=== PATIENT | male | born 1965 | race Caucasian/White ===

== ENCOUNTER 2024-07-31 03:26 | Inpatient (IN) | payer OTHER, SELFPAY ==
[2024-07-31] MEDS ORDERED: METHYLPREDNISOLONE 125 MG INJ ONE (03:54)
[2024-07-31] MEDS ORDERED: IPRATROPIUM BROM 0.5MG/2.5ML ONE (03:54)
[2024-07-31] MEDS ORDERED: Levofloxacin500mg IV 500 MG/100 ML BAG IV ONE (03:55)
[2024-07-31] MEDS ORDERED: FAMOTIDINE 20 MG/2 ML VIAL IV ONE (03:55)
[2024-07-31] MEDS ORDERED: LEVALBUTEROL 1.25 MG/3 ML NEB ONE (03:55)
[2024-07-31] MEDS ORDERED: NA CHLORIDE 0.9% 1,000 ML ONE (03:56)
--- NOTE | 2024-07-31 04:03 | EDPHYS ---
Physician Documentation [facility] Name: Kostas De Jesus Age: 59 yrs Sex: Male : 1965 Arrival Date: 07/31/2024 Time: 03:26 Bed 8 Private MD: ED Physician Dwight Brooks HPI: 07/31 03:43 This 59 yrs old Male presents to ER via EMS with complaints of Breathing denise Difficulty. 03:43 The patient has shortness of breath at rest, with light activity. Onset: The denise symptoms/episode began/occurred today, yesterday. Duration: The symptoms are continuous, and are steadily getting worse. The patient's shortness of breath is aggravated by coughing. Associated signs and symptoms: The patient has no apparent associated signs or symptoms. Severity of symptoms: At their worst the symptoms were moderate in the emergency department the symptoms are unchanged. The patient has experienced similar episodes in the past, multiple times. Historical: - Allergies: 03:36 No Known Allergies; bm8 - Home Meds: 03:36 albuterol sulfate 2.5 mg /3 mL (0.083 %) Nebulizer Solution for Nebulization [Active]; bm8 - PMHx: 03:36 Chronic obstructive lung disease; Asthma; Chronic bronchitis; bm8 - PSHx: 03:36 None; bm8 - Immunization history:: Adult Immunizations unknown. - Infectious Disease History:: Denies. - Social history:: Smoking status: Patient reports the use of cigarette tobacco products, denies chronic smoking, but will smoke occasionally. - Family history:: not pertinent. ROS: 03:43 Constitutional: Negative for fever, chills, and weight loss, Eyes: Negative for injury, denise pain, redness, and discharge, ENT: Negative for injury, pain, and discharge, Neck: Negative for injury, pain, and swelling, Cardiovascular: Negative for chest pain, palpitations, and edema, Abdomen/GI: Negative for abdominal pain, nausea, vomiting, diarrhea, and constipation, Back: Negative for injury and pain, : Negative for injury, bleeding, discharge, and swelling, MS/Extremity: Negative for injury and deformity, Skin: Negative for injury, rash, and discoloration, Neuro: Negative for headache, weakness, numbness, tingling, and seizure, Psych: Negative for depression, anxiety, suicide ideation, homicidal ideation, and hallucinations, Allergy/Immunology: Negative for hives, rash, and allergies, Endocrine: Negative for neck swelling, polydipsia, polyuria, polyphagia, and marked weight changes, Hematologic/Lymphatic: Negative for swollen nodes, abnormal bleeding, and unusual bruising, 03:43 Respiratory: Positive for cough, shortness of breath, wheezing, inspiratory, expiratory, Exam: 03:43 Constitutional: This is a well developed, well nourished patient who is awake, alert, denise and in no acute distress. Head/Face: Normocephalic, atraumatic. Eyes: Pupils equal round and reactive to light, extra-ocular motions intact. Lids and lashes normal. Conjunctiva and sclera are non-icteric and not injected. Cornea within normal limits. Periorbital areas with no swelling, redness, or edema. ENT: Nares patent. No nasal discharge, no septal abnormalities noted. Tympanic membranes are normal and external auditory canals are clear. Oropharynx with no redness, swelling, or masses, exudates, or evidence of obstruction, uvula midline. Mucous membranes moist. Neck: Trachea midline, no thyromegaly or masses palpated, and no cervical lymphadenopathy. Supple, full range of motion without nuchal rigidity, or vertebral point tenderness. No Meningismus. Chest/axilla: Normal chest wall appearance and motion. Nontender with no deformity. No lesions are appreciated. Cardiovascular: Regular rate and rhythm with a normal S1 and S2. No gallops, murmurs, or rubs. Normal PMI, no JVD. No pulse deficits. Abdomen/GI: Soft, non-tender, with normal bowel sounds. No distension or tympany. No guarding or rebound. No evidence of tenderness throughout. Back: No spinal tenderness. No costovertebral tenderness. Full range of motion. Male : Normal genitalia with no discharge or lesions. Skin: Warm, dry with normal turgor. Normal color with no rashes, no lesions, and no evidence of cellulitis. MS/ Extremity: Pulses equal, no cyanosis. Neurovascular intact. Full, normal range of motion. Neuro: Awake and alert, GCS 15, oriented to person, place, time, and situation. Cranial nerves II-XII grossly intact. Motor strength 5/5 in all extremities. Sensory grossly intact. Cerebellar exam normal. Normal gait. Psych: Awake, alert, with orientation to person, place and time. Behavior, mood, and affect are within normal limits. 03:43 Respiratory: mild respiratory distress is noted, moderate respiratory distress is noted, Respirations: labored breathing, that is mild, that is moderate, Breath sounds: bronchial sounds, that are moderate, are scattered, decreased breath sounds, that are moderate, are scattered, rhonchi, that are mild, are scattered, stridor, is not appreciated, + upper airway congestion. wheezing: inspiratory expiratory is heard diffusely, Vital Signs: 03:34 BP 121 / 74; Pulse 98; Resp 18; Temp 98; Pulse Ox 98% on 3 lpm NC; Weight 37.65 kg; bm8 Height 5 ft. 4 in. ; Pain 0/10; 04:06 BP 119 / 75; Pulse 86; Resp 25; Temp 98; Pulse Ox 98% on 10 lpm Nebulizer Mask; Pain bm8 0/10; 05:16 BP 105 / 75; Pulse 91; Resp 23; Temp 98; Pulse Ox 95% on R/A; Pain 0/10; bm8 03:34 Body Mass Index 14.25 (37.65 kg, 162.56 cm) bm8 03:34 Pain Scale: Adult bm8 04:06 Pain Scale: Adult bm8 05:16 Pain Scale: Adult bm8 Manjinder Coma Score: 04:06 Eye Response: spontaneous(4). Motor Response: obeys commands(6). Verbal Response: bm8 oriented(5). Total: 15. 05:16 Eye Response: spontaneous(4). Motor Response: obeys commands(6). Verbal Response: bm8 oriented(5). Total: 15. MDM: 03:34 Patient medically screened. denise 03:45 Differential diagnosis: Anxiety Reaction asthma, Bronchitis CHF exacerbation, Chronic denise Obstructive Pulmonary Disease Myocardial Infarction pneumonia, Pneumothorax Psychogenic pulmonary edema, Pulmonary Embolism reactive airway disease, Sepsis Unstable Angina. Antibiotic administration: Not indicated, Immunization status: Influenza vaccine: within last 5 years. Data reviewed: vital signs, nurses notes, lab test result(s), EKG, radiologic studies, plain films. Consideration of Admission/Observation Escalation of care including admission/observation considered. I considered the following discharge prescriptions or medication management in the emergency department Medications were administered in the Emergency Department. See MAR. Test considered but Not performed: CT: ct chest. 07/31 03:36 Order name: Basic Metabolic Panel; Complete Time: 04:35 [facility] 07/31 03:36 Order name: CBC with Diff; Complete Time: 04:11 [facility] 07/31 03:36 Order name: LFT's; Complete Time: 04:35 [facility] 07/31 03:36 Order name: Magnesium; Complete Time: 04:35 07/31 03:36 Order name: NT PRO-BNP; Complete Time: 04:35 [facility] 07/31 03:36 Order name: PT-INR [facility] 07/31 03:36 Order name: Troponin HS; Complete Time: 04:35 [facility] 07/31 03:36 Order name: Blood Culture Adult (2) [facility] 07/31 03:40 Order name: Lactate w/ 2H reflex if indic.; Complete Time: 04:35 [facility] 07/31 04:34 Order name: Urinalysis w/ reflexes [facility] 07/31 04:34 Order name: Basic Metabolic Panel [facility] 07/31 04:34 Order name: Basic Metabolic Panel [facility] 07/31 04:34 Order name: CBC with Automated Diff [facility] 07/31 04:34 Order name: CBC with Automated Diff [facility] 07/31 04:34 Order name: NT PRO-BNP [facility] 07/31 04:34 Order name: NT PRO-BNP [facility] 07/31 04:34 Order name: Troponin High Sensitivity [facility] 07/31 04:34 Order name: Sputum Culture [facility] 07/31 04:36 Order name: ABG [facility] 07/31 05:13 Order name: D-Dimer [facility] 07/31 03:36 Order name: XRAY Chest (1 view) [facility] 07/31 03:36 Order name: EKG; Complete Time: 03:36 denise 07/31 03:36 Order name: Cardiac monitoring; Complete Time: 03:39 07/31 03:36 Order name: EKG - Nurse/Tech; Complete Time: 03:39 07/31 03:36 Order name: IV Saline Lock; Complete Time: 03:39 [facility] 07/31 03:36 Order name: Labs collected and sent; Complete Time: 03:39 denise 07/31 03:36 Order name: O2 Per Protocol; Complete Time: 03:40 07/31 03:36 Order name: O2 Sat Monitoring; Complete Time: 03:40 [facility] Administered Medications: 04:05 Drug: NS 0.9% IV 1000 ml IV at 125 ml/hr continuous Route: IV; Rate: 125 ml/hr; Site: bm8 right forearm; 04:42 Follow up: Response: No adverse reaction; IV Status: Infusion continued upon admission bm8 04:05 Drug: Famotidine IVP 20 mg IVP once; dilute with 10 mL 0.9% NaCl; give over 2 minutes bm8 Route: IVP; Site: right forearm; 04:43 Follow up: Response: No adverse reaction bm8 04:05 Drug: Levalbuterol Inhalation 3.75 mg Inhalation once Route: Inhalation; bm8 04:43 Follow up: Response: No adverse reaction bm8 04:05 Drug: Ipratropium Inhalation Aerosol 0.5 mg Inhalation once Route: Inhalation; bm8 04:43 Follow up: Response: No adverse reaction bm8 04:06 Drug: MethylPrednisoLONE IVP 125 mg IVP once Route: IVP; Site: right forearm; bm8 04:42 Follow up: Response: No adverse reaction bm8 04:06 Drug: levofloxacin IVPB 500 mg 100 ml IVPB once over 60 mins Volume: 100 ml; Route: bm8 IVPB; Infused Over: 60 mins; Site: right forearm; 04:43 Follow up: Response: No adverse reaction; IV Status: Infusion continued upon admission bm8 04:35 Drug: Magnesium Sulfate IVPB 2 grams IVPB once over 2 hrs Route: IVPB; Infused Over: 2 bm8 hrs; Site: left forearm; 04:44 Follow up: Response: No adverse reaction; IV Status: Infusion continued upon admission bm8 04:36 Drug: Levalbuterol Inhalation 1.25 mg Inhalation once Route: Inhalation; bm8 04:44 Follow up: Response: No adverse reaction bm8 04:36 Drug: Levalbuterol Inhalation 1.25 mg Inhalation once Route: Inhalation; bm8 04:44 Follow up: Response: No adverse reaction bm8 Disposition Summary: 07/31/24 04:03 Hospitalization Ordered Notes: Hospitalization Status: Inpatient Admission denise Provider: Prince denise Lucas Condition: Fair denise Problem: new denise Symptoms: have improved denise Bed/Room Type: Standard denise Location: Telemetry/MedSurg (Inpatient)(07/31/24 05:00) Room Assignment: 208(07/31/24 05:00) Diagnosis - Dyspnea denise - COPD/ Chronic obstructive pulmonary disease with (acute) exacerbation denise - Hypoxemia denise - Tobacco abuse counseling denise - Tobacco use denise Forms: - Medication Reconciliation Form denise - SBAR form denise - Leadership Thank You Letter denise Signatures: Dispatcher [employer] EDKrystal Headley, RN RN Dwight Galvan MD MD cha Able, Lacie RN RN lg3 Sam Rosenberg, RN RN bm8 Corrections: (The following items were deleted from the chart) 03:36 03:36 BASIC METABOLIC PANEL+C.LAB.BRZ ordered. EDMS EDMS 03:36 03:36 CBC+H.LAB.BRZ ordered. EDMS EDMS 03:36 03:36 HEPATIC FUNCTION+C.LAB.BRZ ordered. EDMS EDMS 03:36 03:36 MAGNESIUM+C.LAB.BRZ ordered. EDMS EDMS 03:36 03:36 PROBNP+C.LAB.BRZ ordered. EDMS EDMS 03:36 03:36 PROTIME (+INR)+COAG.LAB.BRZ ordered. EDMS EDMS 03:36 03:36 Troponin High Sensitivity+C.LAB.BRZ ordered. EDMS EDMS 03:36 03:36 BLOOD CULTURE*+BA.LAB.BRZ ordered. EDMS EDMS 03:41 03:41 LACTATE+C.LAB.BRZ ordered. EDMS EDMS 04:10 04:03 Telemetry/MedSurg (Inpatient) denise lg3 04:10 04:03 denise lg3 04:36 04:36 Arterial Blood Gas+RC.LAB.BRZ ordered. EDMS EDMS 05:00 04:10 [facility] ER HOLD lg3 kl 05:00 04:10 ERHOLD- lg3 kl 05:13 05:00 D-Dimer ordered. EDMS EDMS
--- NOTE | 2024-07-31 04:03 | ER ---
Nurse's Notes [facility] Name: Kostas De Jesus Age: 59 yrs Sex: Male : 1965 Arrival Date: 07/31/2024 Time: 03:26 Bed 8 Private MD: Diagnosis: Dyspnea;COPD/ Chronic obstructive pulmonary disease with (acute) exacerbation;Hypoxemia;Tobacco abuse counseling;Tobacco use Presentation: 07/31 03:34 Chief complaint: Patient states: I have been short of breath for 2 days, I dont feel bm8 like my O2 is getting into me at home. Coronavirus screen: At this time, the client does not indicate any symptoms associated with coronavirus-19. Ebola Screen: Patient negative for fever greater than or equal to 101.5 degrees Fahrenheit, and additional compatible Ebola Virus Disease symptoms Patient denies exposure to infectious person. Patient denies travel to an Ebola-affected area in the 21 days before illness onset. No symptoms or risks identified at this time. Initial Sepsis Screen: Does the patient meet any 2 criteria? No. Patient's initial sepsis screen is negative. Does the patient have a suspected source of infection? No. Patient's initial sepsis screen is negative. Risk Assessment: Do you want to hurt yourself or someone else? Patient reports no desire to harm self or others. Onset of symptoms was July 29, 2024. 03:34 Method Of Arrival: EMS: [facility] 03:34 Acuity: BRYANT 3 bm8 03:34 Care prior to arrival: Medication(s) given: Albuterol Neb x 1. bm8 Triage Assessment: 03:36 General: Appears distressed, uncomfortable, Behavior is cooperative, appropriate for bm8 age, anxious. Pain: Denies pain. EENT: No deficits noted. No signs and/or symptoms were reported regarding the EENT system. Neuro: No deficits noted. Level of Consciousness is awake, alert, obeys commands, Oriented to person, place, time, situation, Appropriate for age. Cardiovascular: Denies chest pain, Heart tones S1 S2 present Capillary refill < 3 seconds in bilateral fingers Clubbing of nail beds is present Patient's skin is warm and dry. Rhythm is sinus rhythm. Respiratory: Reports shortness of breath air hunger labored breathing Airway is patent Respiratory effort is even, labored, pursed lip, Respiratory pattern is symmetrical, hypoventilation Breath sounds with rhonchi bilaterally. Onset: The symptoms/episode began/occurred at an unknown time. the patient has severe shortness of breath. GI: No signs and/or symptoms were reported involving the gastrointestinal system. : No signs and/or symptoms were reported regarding the genitourinary system. Derm: No signs and/or symptoms reported regarding the dermatologic system. Musculoskeletal: No signs and/or symptoms reported regarding the musculoskeletal system. Historical: - Allergies: 03:36 No Known Allergies; bm8 - Home Meds: 03:36 albuterol sulfate 2.5 mg /3 mL (0.083 %) Nebulizer Solution for Nebulization [Active]; bm8 - PMHx: 03:36 Chronic obstructive lung disease; Asthma; Chronic bronchitis; bm8 - PSHx: 03:36 None; bm8 - Immunization history:: Adult Immunizations unknown. - Infectious Disease History:: Denies. - Social history:: Smoking status: Patient reports the use of cigarette tobacco products, denies chronic smoking, but will smoke occasionally. - Family history:: not pertinent. Screenin:[address] [facility] ED Fall Risk Assessment (Adult) History of falling in the last 3 months, bm8 including since admission Yes- single mechanical fall (1 pt) Confusion or Disorientation No (0 pts) Intoxicated or Sedated No (0 pts) Impaired Gait Yes (1 pt) Mobility Assist Device Used No (0 pt) Altered Elimination No (0 pt) Score/Fall Risk Level 0 - 2 = Low Risk Oriented to surroundings, Maintained a safe environment, Educated pt \T\ family on fall prevention, incl call for assistance when getting out of bed, Assessed \T\ reinforced patient's understanding of fall precautions, Hourly rounding (assess needs \T\ fall precautionary measures) done, Used ambulatory aids as needed (educated on \T\ assisted with), Used gait belt as appropriate. Abuse screen: Denies threats or abuse. Nutritional screening: No deficits noted. Tuberculosis screening: No symptoms or risk factors identified. Assessment: 04:06 General: Appears in no apparent distress. comfortable, Behavior is calm, cooperative, bm8 appropriate for age. Pain: Denies pain. Neuro: No deficits noted. Cardiovascular: Denies chest pain. Respiratory: Airway is patent Trachea midline Respiratory effort is even, unlabored, Respiratory pattern is regular, symmetrical, Breath sounds with rhonchi bilaterally. 05:16 Reassessment: Patient appears in no apparent distress at this time. No changes from bm8 previously documented assessment. Patient and/or family updated on plan of care and expected duration. Pain level reassessed. Patient denies pain at this time. Patient states feeling better. Patient states symptoms have improved. Vital Signs: 03:34 BP 121 / 74; Pulse 98; Resp 18; Temp 98; Pulse Ox 98% on 3 lpm NC; Weight 37.65 kg; bm8 Height 5 ft. 4 in. ; Pain 0/10; 04:06 BP 119 / 75; Pulse 86; Resp 25; Temp 98; Pulse Ox 98% on 10 lpm Nebulizer Mask; Pain bm8 0/10; 05:16 BP 105 / 75; Pulse 91; Resp 23; Temp 98; Pulse Ox 95% on R/A; Pain 0/10; bm8 03:34 Body Mass Index 14.25 (37.65 kg, 162.56 cm) bm8 03:34 Pain Scale: Adult bm8 04:06 Pain Scale: Adult bm8 05:16 Pain Scale: Adult bm8 Manjinder Coma Score: 04:06 Eye Response: spontaneous(4). Motor Response: obeys commands(6). Verbal Response: bm8 oriented(5). Total: 15. 05:16 Eye Response: spontaneous(4). Motor Response: obeys commands(6). Verbal Response: bm8 oriented(5). Total: 15. ED Course: 03:31 Patient arrived in ED. jj6 03:33 Sam Rosenberg, RN is Primary Nurse. bm8 03:34 Dwight Brooks MD is Attending Physician. denise 03:36 Triage completed. bm8 03:36 Arm band placed on right wrist. bm8 03:48 EKG done, by ED staff, reviewed by Dwight Brooks MD. sa1 03:56 XRAY Chest (1 view) In Process Unspecified. EDMS 04:01 Prince Lucas MD is Hospitalizing Provider. denise 04:06 Patient has correct armband on for positive identification. Call light in reach. Side bm8 rails up X 1. Client placed on continuous cardiac and pulse oximetry monitoring. NIBP monitoring applied. case monitor on. Pulse ox on. NIBP on. Door closed. Noise minimized. Visitors limited. Warm blanket given. Pillow given. Verbal reassurance given. Head of bed. 04:06 No provider procedures requiring assistance completed. Inserted saline lock: 18 gauge bm8 in right in left forearm, using aseptic technique. Blood collected. Flushed with 10 mL NS. Oxygen administered via a nebulizer mask. Response to oxygen therapy: symptoms improved. 04:44 Provided Education on: need for admission. bm8 04:44 Patient admitted, IV remains in place. bm8 Administered Medications: 04:05 Drug: NS 0.9% IV 1000 ml IV at 125 ml/hr continuous Route: IV; Rate: 125 ml/hr; Site: bm8 right forearm; 04:42 Follow up: Response: No adverse reaction; IV Status: Infusion continued upon admission bm8 04:05 Drug: Famotidine IVP 20 mg IVP once; dilute with 10 mL 0.9% NaCl; give over 2 minutes bm8 Route: IVP; Site: right forearm; 04:43 Follow up: Response: No adverse reaction bm8 04:05 Drug: Levalbuterol Inhalation 3.75 mg Inhalation once Route: Inhalation; bm8 04:43 Follow up: Response: No adverse reaction bm8 04:05 Drug: Ipratropium Inhalation Aerosol 0.5 mg Inhalation once Route: Inhalation; bm8 04:43 Follow up: Response: No adverse reaction bm8 04:06 Drug: MethylPrednisoLONE IVP 125 mg IVP once Route: IVP; Site: right forearm; bm8 04:42 Follow up: Response: No adverse reaction bm8 04:06 Drug: levofloxacin IVPB 500 mg 100 ml IVPB once over 60 mins Volume: 100 ml; Route: bm8 IVPB; Infused Over: 60 mins; Site: right forearm; 04:43 Follow up: Response: No adverse reaction; IV Status: Infusion continued upon admission bm8 04:35 Drug: Magnesium Sulfate IVPB 2 grams IVPB once over 2 hrs Route: IVPB; Infused Over: 2 bm8 hrs; Site: left forearm; 04:44 Follow up: Response: No adverse reaction; IV Status: Infusion continued upon admission bm8 04:36 Drug: Levalbuterol Inhalation 1.25 mg Inhalation once Route: Inhalation; bm8 04:44 Follow up: Response: No adverse reaction bm8 04:36 Drug: Levalbuterol Inhalation 1.25 mg Inhalation once Route: Inhalation; [facility] 04:44 Follow up: Response: No adverse reaction bm8 Medication: 04:06 VIS not applicable for this client. bm8 Outcome: 04:03 Decision to Hospitalize by Provider. denise 04:44 Admitted to ER Hold. Please see [facility] for further documentation. 8 04:44 Condition: stable 04:44 Instructed on the need for admit, Demonstrated understanding of instructions, follow-up care, medications, 05:51 Patient left the ED. 8 Signatures: Dispatcher [employer] EDDwight Storm MD MD cha Jeffries, Jennifer jj6 Sam Rosenberg, RN RN bm8 Sultan warren Mace
[2024-07-31 04:05] LABS: Absolute Eosinophils 0.2 K/uL (0-0.5); Absolute Lymphocytes (CBC) 1.3 K/uL (0.7-4.9); Absolute Monocytes 1.1 K/uL (0.1-1.3); Absolute Neutrophil 5.1 K/uL (1.8-8.0); Basophils % 0.6 % (0-1.3); Eosinophils % 2.1 % (0-4.4); Hematocrit 35.4 % (39.6-49.0); Hemoglobin 11.4 g/dL (13.6-17.9); Lymphocytes % 16.6 % (15.3-44.8); MCH 30.3 pg (27.0-35.0); MCHC 32.2 g/dL (32.0-36.0); MPV 8.9 fL (7.6-11.3); Monocytes % 13.9 % (3.3-12.3); Neutrophils % 66.8 % (41.7-73.7); Platelets 224 thou/uL (152-406); RBC Red Blood Cell Count 3.77 M/uL (4.33-5.43); Red Cell Distribution Width 13.6 % (12.1-15.2)
[2024-07-31] MEDS ORDERED: Magnesium Sulfate 2gm IVPB 2 G/50 ML BAG IV ONE (04:14)
[2024-07-31 04:21] LABS: ALT/SGPT 47 U/L (16-61); AST/SGOT 27 U/L (15-37); Albumin 3.4 g/dL (3.4-5.0); Albumin/Globulin Ratio 0.9 (1.1-1.8); Alkaline Phosphatase 62 U/L (45-117); Anion Gap 4.9 mEq/L (5.0-15.0); BUN Blood Urea Nitrogen 17 mg/dL (7-18); Bicarbonate 42 mEq/L (21-32); Bilirubin Total 0.2 mg/dL (0.2-1.0); Globulin 3.7 g/dL (2.3-3.5); Glomerular Filtration Rate 120 ml/min (=/>90); Glucose Level 110 mg/dL (74-106); Magnesium 2.1 mg/dL (1.6-2.4); NT PRO-BNP 113 pg/mL (<125); PT Prothrombin Time 10.4 SECONDS (9.4-12.5); Potassium 3.9 mEq/L (3.5-5.1); Protein, Total 7.1 g/dL (6.4-8.2); Protime INR 0.93; Sodium Level 140 mEq/L (136-145); Troponin High Sensitivity 3.1 pg/mL (<58.9)
[2024-07-31 04:23] LABS: Bilirubin Direct < 0.2 mg/dL (0-0.2)
[2024-07-31] MEDS ORDERED: ONDANSETRON 4 MG/2 ML VIAL IV PRN ×2 (04:28)
[2024-07-31] MEDS ORDERED: ALBUTEROL 2.5 MG/3 ML NEB SOL NEB PRN ×2 (04:28→07:26)
[2024-07-31] MEDS ORDERED: IPRATROPIUM BROM 0.5MG/2.5ML NEB PRN ×2 (04:28→07:27)
[2024-07-31] MEDS ORDERED: ACETAMINOPHEN 500 MG TAB PO PRN (04:28)
--- NOTE | 2024-07-31 04:57 | P.HP ---
Certification for Inpatient Patient admitted to: Inpatient With expected LOS: >2 Midnights Practitioner: I am a practitioner with admitting privileges, knowledge of patient current condition, hospital course, and medical plan of care. Services: Services provided to patient in accordance with Admission requirements found in Title 42 Section 412.3 of the Code of Federal Regulations Patient History Date of Service: 07/31/24 Reason for admission: shortness of breath History of Present Illness: This is a 59-year-old male with a known past medical history of chronic respiratory failure and COPD. He is presenting to the ER complaining of shortness of breath ongoing for the past 2 days. Patient states that he woke up 1 day without his oxygen on and has been symptomatic since. Associated symptoms include productive cough. He has no lower extremity edema or fever. His chest x-ray in the ER revealed hyperinflated lungs. During my evaluation, patient was using the nebulizer therapy. He also received IV magnesium sulfate and levofloxacin. Allergies No Known Allergie Allergy (Uncoded 11/30/17 00:18) Unknown Physical Examination - Physical Exam General: Cachectic HEENT: Atraumatic, Normocephalic Respiratory: Diminished Cardiovascular: Normal pulses, Regular rate/rhythm, Normal S1 S2 Neurological: Normal speech - Studies Laboratory Data (last 24 hrs) 07/31/24 07/31/24 07/31/24 03:30 03:30 03:30 WBC 7.70 Hgb 11.4 L Hct 35.4 L Plt Count 224 PT 10.4 INR 0.93 Sodium 140 Potassium 3.9 BUN 17 Creatinine 0.47 L Glucose 110 H Magnesium 2.1 Total Bilirubin 0.2 AST 27 ALT 47 Alkaline Phosphatase 62 Assessment and Plan - Problems (Diagnosis) (1) Acute and chronic respiratory failure Current Visit: Yes Status: Acute (2) COPD exacerbation Current Visit: Yes Status: Acute - Plan Assessment This is a 59-year-old male who is being admitted for COPD exacerbation. Acute on chronic respiratory failure COPD exacerbation Plan: Will admit inpatient BiPAP ordered, to alternate with nasal cannula Continue Solu-Medrol, IV levofloxacin and DuoNeb Will also add Dulera on board GI prophylaxis added Check D-dimer to rule out pulmonary embolism - Advance Directives Does patient have a Living Will: No Does patient have a Durable POA for Healthcare: No
[2024-07-31] MEDS ORDERED: SODIUM CHLORIDE 0.9% 10ML INJ IV PRN (04:58)
[2024-07-31 05:17] LABS: D-Dimer 0.837 FEUug/mL (0-0.500)
[2024-07-31 05:41] LABS: Arterial Blood Carboxyhemoglob 2.1 % (0-1.5); Blood Gas Oxyhemoglobin 92.5 % (94-97); Blood Gas THB 11.2 g/dl (12-18); Blood O2 Saturation 96.3 % (92-98.5)
[2024-07-31] MEDS: PANTOPRAZOLE 40 MG INJ IVP SCH (06:00)
--- NOTE | 2024-07-31 06:34 | RAD REPORT ---
EXAM DESCRIPTION: Chest Single View CLINICAL HISTORY: COPD COMPARISON: None TECHNIQUE: Single AP view of the chest. FINDINGS: Lung volumes adequate. Cardiac silhouette is normal in size. No pneumothorax. No large pleural effusion. Blunting of bilateral costophrenic angles, suggesting small effusions versus pleural scarring. No acute bony finding. IMPRESSION: 1. No focal consolidation. 2. Small bilateral pleural effusions versus pleural scarring. Electronically signed by: Albina Bond MD 07/31/2024 06:29 AM CDT Z9 Due to temporary technical issues with the PACS/[employer] reporting system, reports are being twila d by the in-house radiologist without review as a courtesy to ensure prompt reporting the interpreting radiologist is fully responsible for the content of the report. Transcribed Date/Time: 07/31/2024 6:33 AM
[2024-07-31] MEDS: DULERA 200/5 (MOMETASONE/FORMOTEROL) INHALER IH SCH (07:00)
[2024-07-31 07:46] VITALS: BMI 14.2
[2024-07-31] MEDS: Levofloxacin 750mg IV 750 MG/150 ML BAG IV SCH (08:00)
[2024-07-31 08:22] VITALS: TEMP 98
[2024-07-31 08:25] VITALS: BP 105/75
[2024-07-31] MEDS: ENOXAPARIN 40 MG/0.4 ML SQ SCH (10:20)
[2024-07-31] MEDS: METHYLPREDNISOLONE 40 MG INJ IV SCH (10:21)
[2024-07-31] MEDS: ASPIRIN EC 81 MG TAB PO SCH (10:21)
[2024-07-31 10:48] VITALS: O2SAT 98
== END 2024-07-31 12:00 | disposition left against medical advice (07) | DRG 189 ==
LOC: ER 03:26 → 2ND 04:28
PROVIDERS: ADMIT Internal Medicine; ATTEND Hospitalist
PROC: 4A033R1 Measurement of Arterial Saturation, Peripheral, Percutaneous Approach (ICD-10-PCS; principal; 2024-07-31)
PROC: 5A09357 Assistance with Respiratory Ventilation, Less than 24 Consecutive Hours, Continuous Positive Airway Pressure (ICD-10-PCS; 2024-07-31)
DX: J96.21 Acute and chronic respiratory failure with hypoxia (principal); J44.1 Chronic obstructive pulmonary disease with (acute) exacerbation; R64 Cachexia; Z68.1 Body mass index [BMI] 19.9 or less, adult; F17.210 Nicotine dependence, cigarettes, uncomplicated; Z71.6 Tobacco abuse counseling; Z79.899 Other long term (current) drug therapy
CPT/HCPCS: 36415; 36600; 71045; 80048; 80076; 82805; 83605; 83735; 83880; 84484; 85025; 85379; 85610; 87040; 93005; 94660; J1650; J2919; J3475; J7030; J7614; J7644

== ENCOUNTER 2024-11-07 13:20 | Emergency (ER) | payer OTHER ==
--- NOTE | 2024-11-07 13:44 | RAD REPORT ---
EXAM: Chest Single View HISTORY: COPD COMPARISON: 07/31/2024 FINDINGS: LUNGS/PLEURA: Ill-defined nodular airspace disease in the medial left lung base. Emphysema with hyper expanded lungs. MEDIASTINUM: The mediastinal silhouette is within normal limits. CARDIAC: The cardiac silhouette is within normal limits. UPPER ABDOMEN: No significant abnormality. BONES: No acute abnormality. LINES/TUBES/OTHER: N/A IMPRESSION: New airspace disease in the left lower lung likely reflecting pneumonia.
--- NOTE | 2024-11-07 13:58 | EDPHYS ---
Physician Documentation [facility] Name: Kostas De Jesus Jr Age: 59 yrs Sex: Male : 1965 Arrival Date: 11/07/2024 Time: 13:20 Bed 16 Private MD: ED Physician Campos Molina HPI: 11/07 13:31 This 59 yrs old Male presents to ER via EMS with complaints of Shortness Of ec2 Breath. 13:31 Patient arrives today due to difficult living conditions. Patient baseline oxygen due ec2 to COPD, has run out of power on his home concentrator and subsequently comes to the ED due to shortness of breath secondary to inability to use his oxygen at home. Also has oxygen tanks which he has been using which he has also run out of. No other complaints. EMS had placed him on oxygen and improved saturations from 88 to 99%. Patient reports otherwise no illnesses, no vomiting or diarrhea, no other complaints.. Historical: - Allergies: 13:30 No Known Allergies; cm10 - Home Meds: 13:30 Albuterol Inhl [Active]; albuterol sulfate 2.5 mg /3 mL (0.083 %) Inhl Solution for cm10 Nebulization [Active]; Buspirone Oral [Active]; Prednisone Oral [Active]; - PMHx: 13:30 Asthma; chronic bronchitis; Chronic obstructive lung disease; Depressive disorder; cm10 - Immunization history:: Adult Immunizations unknown. - Infectious Disease History:: Denies. - Social history:: Smoking status: unknown. ROS: 13:31 Constitutional: as per hpi ec2 Exam: 13:31 Constitutional: GEN: NAD Head: atraumatic Eyes: EOMI Ears: External ears are normal. ec2 CV: regular rate LUNGS: Minimal tachypnea, no respiratory distress, no wheezes or rales or rhonchi appreciated. ABD: non-distended SKIN: no evidence of rashes MSK: no evidence of trauma Vital Signs: 13:28 BP 115 / 74; Pulse 87; Resp 24; Temp 97.8(O); Pulse Ox 99% on 4 lpm NC; Weight 40.82 cm10 kg; Height 5 ft. 4 in. ; Pain 0/10; 14:00 BP 116 / 86; Pulse 85; Resp 16; Pulse Ox 100% on 4 lpm NC; ss 14:43 BP 115 / 79; Pulse 86; Resp 18; Temp 98.6; Pulse Ox 100% on 4 lpm NC; ss 13:28 Body Mass Index 15.45 (40.82 kg, 162.56 cm) cm10 13:28 Pain Scale: Adult cm10 MDM: 13:33 Data reviewed: vital signs, nurses notes. ED course: Patient arrives today due to ec2 shortness of breath in the setting of no home O2. Examination is unrevealing. Placed patient on oxygen and he is breathing comfortably without issue. Will monitor and obtain chest x-ray. Will forego lab work such as CBC or BMP at this time given the patient's well appearance and no other complaints aside from his social situation.. 13:34 Medical Screening Exam initiated ec2 13:56 ED course: Chest x-ray shows likely left lower lobe pneumonia, will treat with ec2 antibiotics. Patient otherwise systemically well without any Systemic signs and symptoms, will forego any lab work at this time. Result the patient recommended to have follow-up PCP. Return precautions given.. 11/07 13:31 Order name: CXR XRAY; Complete Time: 13:45 ec2 Administered Medications: 14:21 Drug: Amoxicillin-Clavulanate PO 875 mg PO once Route: PO; ss 14:33 Follow up: Response: No adverse reaction ss Disposition Summary: 11/07/24 13:57 Discharge Ordered Notes: Location: Home ec2 Condition: Stable ec2 Diagnosis - COPD/ Chronic obstructive pulmonary disease, unspecified ec2 - Unspecified bacterial pneumonia ec2 Followup: ec2 - With: Private Physician - When: - Reason: Re-evaluation by your physician Discharge Instructions: - Discharge Summary Sheet ec2 - Community-Acquired Pneumonia, Adult ec2 Forms: - Medication Reconciliation Form ec2 - Antibiotic Education ec2 - Prescription Opioid Use ec2 - Patient Portal Instructions ec2 - Leadership Thank You Letter ec2 Prescriptions: - Augmentin 875-125 mg Oral Tablet - take 1 tablet ORAL route every 12 hours for 10 days; 20 tablet; Refills: 0, ec2 Product Selection Permitted Signatures: Dispatcher [employer] Narcisa Deleon RN RN ss Juanita Gunn RN RN cm10 Campos Molina MD MD ec2
--- NOTE | 2024-11-07 13:58 | ER ---
Nurse's Notes [facility] Name: Kostas De Jesus Jr Age: 59 yrs Sex: Male : 1965 Arrival Date: 11/07/2024 Time: 13:20 Bed 16 Private MD: Diagnosis: COPD/ Chronic obstructive pulmonary disease, unspecified;Unspecified bacterial pneumonia Presentation: 11/07 13:27 Chief complaint: EMS states: Called to patient's home due to pt not having any power ss and not being able to use his home O2. Pt states that he started having shortness of breath due to not having power and not being on his home O2. Pt uses 4L via NC continuously. 13:28 Coronavirus screen: Client denies travel out of the [place] in the last 14 days. Ebola cm10 Screen: Patient denies travel to an Ebola-affected area in the 21 days before illness onset. Initial Sepsis Screen: Does the patient meet any 2 criteria? RR > 20 per min. Does the patient have a suspected source of infection? No. Patient's initial sepsis screen is negative. Risk Assessment: Do you want to hurt yourself or someone else? Patient reports no desire to harm self or others. Onset of symptoms was November 07, 2024. Care prior to arrival: Medication(s) given: Albuterol Neb x 1, Atrovent Neb x 1, Med neb given. 13:28 Method Of Arrival: EMS: [facility] 10 13:28 Acuity: BRYANT 4 cm10 Triage Assessment: 13:32 General: Appears in no apparent distress. comfortable, Behavior is calm, cooperative. cm10 Pain: Denies pain. Neuro: No deficits noted. Level of Consciousness is awake, alert, obeys commands, Oriented to person, place, time, situation, Appropriate for age. Respiratory: Reports shortness of breath Airway is patent Respiratory effort is even, unlabored, Respiratory pattern is regular, symmetrical. 14:36 Respiratory: Onset: The symptoms/episode began/occurred today, the patient has moderate ss shortness of breath. Historical: - Allergies: 13:30 No Known Allergies; cm10 - Home Meds: 13:30 Albuterol Inhl [Active]; albuterol sulfate 2.5 mg /3 mL (0.083 %) Inhl Solution for cm10 Nebulization [Active]; Buspirone Oral [Active]; Prednisone Oral [Active]; - PMHx: 13:30 Asthma; chronic bronchitis; Chronic obstructive lung disease; Depressive disorder; cm10 - Immunization history:: Adult Immunizations unknown. - Infectious Disease History:: Denies. - Social history:: Smoking status: unknown. Screenin:50 [facility] ED Fall Risk Assessment (Adult) History of falling in the last 3 months, ss including since admission No falls in past 3 months (0 pts) Confusion or Disorientation No (0 pts) Intoxicated or Sedated No (0 pts) Impaired Gait No (0 pts) Mobility Assist Device Used No (0 pt) Altered Elimination No (0 pt) Score/Fall Risk Level 0 - 2 = Low Risk Maintained a safe environment, Provided non-skid footwear, Hourly rounding (assess needs \T\ fall precautionary measures) done. Abuse screen: Denies threats or abuse. Nutritional screening: No deficits noted. Tuberculosis screening: No symptoms or risk factors identified. Assessment: 13:50 General: Called to patient's home due to pt not having any power and not being able to ss use his home O2. Pt states that he started having shortness of breath due to not having power and not being on his home O2. Pt uses 4L via NC continuously, . Pain: Denies pain. Neuro: Level of Consciousness is awake, alert, obeys commands, Oriented to person, place, time, situation, Appropriate for age. Cardiovascular: Patient's skin is warm and dry. Cardiovascular: Rhythm is regular. Respiratory: Airway is patent Respiratory effort is even, unlabored, Respiratory pattern is regular, symmetrical, Breath sounds are clear bilaterally. GI: No signs and/or symptoms were reported involving the gastrointestinal system. : No signs and/or symptoms were reported regarding the genitourinary system. EENT: No signs and/or symptoms were reported regarding the EENT system. Derm: Skin is intact, is healthy with good turgor, Skin is pink, warm \T\ dry. Musculoskeletal: No signs and/or symptoms reported regarding the musculoskeletal system. Vital Signs: 13:28 BP 115 / 74; Pulse 87; Resp 24; Temp 97.8(O); Pulse Ox 99% on 4 lpm NC; Weight 40.82 cm10 kg; Height 5 ft. 4 in. ; Pain 0/10; 14:00 BP 116 / 86; Pulse 85; Resp 16; Pulse Ox 100% on 4 lpm NC; ss 14:43 BP 115 / 79; Pulse 86; Resp 18; Temp 98.6; Pulse Ox 100% on 4 lpm NC; ss 13:28 Body Mass Index 15.45 (40.82 kg, 162.56 cm) cm10 13:28 Pain Scale: Adult cm10 ED Course: 13:25 Patient arrived in ED. cm10 13:28 Narcisa Coker, WALLACE is Primary Nurse. ss 13:30 Triage completed. cm10 13:30 Campos Molina MD is Attending Physician. ec2 13:32 Arm band placed on right wrist. Patient placed in an exam room, on a stretcher, on cm10 oxygen, on pulse oximetry. 13:38 CXR XRAY In Process Unspecified. EDMS 13:50 Patient has correct armband on for positive identification. Bed in low position. Call ss light in reach. Side rails up X2. Provided Education on: POC. Verbalized understanding.. Client placed on continuous cardiac and pulse oximetry monitoring. NIBP monitoring applied. Pulse ox on. NIBP on. 13:50 No provider procedures requiring assistance completed. Patient did not have IV access ss during this emergency room visit. Administered Medications: 14:21 Drug: Amoxicillin-Clavulanate PO 875 mg PO once Route: PO; ss 14:33 Follow up: Response: No adverse reaction ss Medication: 13:50 VIS not applicable for this client. ss Outcome: 13:57 Discharge ordered by MD. ec2 14:42 Discharged to home via wheelchair, 14:42 Condition: stable 14:42 Discharge instructions given to patient, Instructed on discharge instructions, follow up and referral plans. medication usage, Demonstrated understanding of instructions, follow-up care, medications, Prescriptions given X 1, 14:42 Patient left the ED. ss Signatures: Dispatcher [employer] EDPA Narcisa Coker RN RN Juanita Gunn RN RN Campos Pratt MD MD ec2 Corrections: (The following items were deleted from the chart) 13:30 13:27 Chief complaint: EMS states: Called to patient's home due to pt not having any cm10 power and not being able to use his home O2. Pt states that he started having shortness of breath. cm10 13:50 13:27 Chief complaint: EMS states: Called to patient's home due to pt not having any ss power and not being able to use his home O2. Pt states that he started having shortness of breath due to not having power and not being on his home O2. Pt uses 4L via NC continuously, cm10
[2024-11-07] MEDS ORDERED: AMOX/K CLAV 875 MG TAB ONE (14:20)
[2024-11-07 14:52] VITALS: TEMP 97.8
[2024-11-07 14:53] VITALS: BP 116/86; O2SAT 100
== END 2024-11-07 14:42 | disposition home or self-care (01) ==
LOC: ER 13:20
DX: J15.9 Unspecified bacterial pneumonia (principal); J44.9 Chronic obstructive pulmonary disease, unspecified
CPT/HCPCS: 71045; 99284